=== PATIENT | female | born 1955 ===

== ENCOUNTER 2024-12-05 16:53 | Emergency (ER) | payer OTHER ==
[~2024-12-05] VITALS: Ht 160 cm; Wt 55.8 kg
[2024-12-05] MEDS ORDERED: PREMARIN30 GM VG (17:49)
[2024-12-05] MEDS ORDERED: CEFTRIAXONE SODIUM 2,000 MG VIAL IV ONE (19:45)
== END 2024-12-05 21:34 | disposition home or self-care (01) ==
LOC: ER 16:53
DX: S80.872A Other superficial bite, left lower leg, initial encounter (principal); L03.116 Cellulitis of left lower limb; W55.01XA Bitten by cat, initial encounter; Y93.89 Activity, other specified; Y92.89 Other specified places as the place of occurrence of the external cause

== ENCOUNTER 2024-12-07 11:42 | Inpatient (IN) | payer OTHER ==
[~2024-12-07] VITALS: Ht 160 cm; Wt 55.8 kg
[~2024-12-07 11:42] MED LIST: PREMARIN30 GM VG
[2024-12-07] MEDS ORDERED: PEPCID AC20 MG PO (11:58)
--- NOTE | 2024-12-07 11:59 | NUR ---
SE RECIBE PACIENTE ALERTA Y ORIENTADA X3 LA CUAL REFIERE VENIR A CAUSA DE QUE EL LUNES PASADO LA MORDIO UN LILIAN Y EN EL MONICA DE HO[place] SE OBSERVA AREA AFECTADA ENROJECIDA E INFLAMADA. LA MISMA NOTIFICO QUE SE ATENDIO EL HEMALATHA PASADO Y LE DIERON ANTIBIOTICOS.
[2024-12-07] MEDS ORDERED: CEFTRIAXONE SODIUM 2,000 MG VIAL IV ONE (16:15)
[2024-12-07] MEDS ORDERED: CEFTRIAXONE SODIUM 2,000 MG VIAL ONE ×2 (16:34→22:09)
--- NOTE | 2024-12-07 17:29 | NUR ---
PACIENTE ALERTA Y ORIENTADA X3. SE EDUCA A PACIENTE SOBRE ADMINISTRACION DE MEDICAMENTOS Y CANALIZACION, REFIERE ENTENDER. SE EJECUTAN ORDENES BAJO MEDIDAS ASEPTICAS. SE NOTIFICA RX PENDIENTE.
[2024-12-07 17:31] LABS: BASO % 0.4 % (0.1-1.2); EOS # 0.17 (0.04-0.54); EOS % 2.4 % (0.7-7.0); LYMPH # 2.07 (1.18-3.74); LYMPH % 29.3 % (19.3-53.1); MEAN PLATELET VOLUME 9.50 fl (9.4-12.4); MONO # 0.60 (0.24-0.82); MONO % 8.5 % (4.7-12.5); NEUT # 4.18 (1.56-6.13); NEUT % 59.1 % (34.0-71.1); RED CELL DISTRIBUTION WIDTH 14.6 % (11.6-14.4)
[2024-12-07 17:42] LABS: ERYTHROCYTE SEDIMENTATION RATE 9 mm/hr (0-30)
[2024-12-07 17:56] LABS: BUN CREA RATIO 26.0 (7.0-25.0); CREATININE SERUM 0.62 mg/dL (0.55-1.02); GFR 94.89; GLUCOSE FASTING 101.0 mg/dL (65-100); OSMOLALITY SERUM 288.0 MOSM/KG (275-295)
[2024-12-07] MEDS ORDERED: CEFTRIAXONE SODIUM 2,000 MG in 0.9 % SODIUM CHLORIDE 100 ML IV SCH (21:11)
[2024-12-07] MEDS ORDERED: FAMOTIDINE/PF 20 MG in 0.9 % SODIUM CHLORIDE 8 ML IV PUSH SCH (21:12)
[2024-12-07] MEDS ORDERED: 0.9 % SODIUM CHLORIDE 1,000 ML IV SCH (21:15)
[2024-12-07] MEDS ORDERED: ACETAMINOPHEN 325 MG TABLET PO PRN (21:15)
[2024-12-07] MEDS ORDERED: KETOROLAC TROMETHAMINE 15 MG VIAL IV PRN (21:15)
[2024-12-07] MEDS ORDERED: VANCOMYCIN HCL 500 MG VIAL IV SCH (22:16)
[2024-12-07] MEDS ORDERED: VANCOMYCIN HCL 1,000 MG VIAL ONE (22:31)
[2024-12-07 23:23] VITALS: BP 138/78; O2SAT 98
[2024-12-07 23:29] LABS: INR 1.01
[2024-12-08] MEDS ORDERED: KETOROLAC TROMETHAMINE 30 MG VIAL IV PRN (06:45)
== END 2024-12-08 11:16 | disposition left against medical advice (07) | DRG 605 ==
LOC: ER 11:42 → MEDI 21:33 → SEC-K 12-08 01:26
PROVIDERS: General Practice; Preventive Medicine Public Health & General Preventive Medicine; ADMIT Student in an Organized Health Care Education/Training Program; ATTEND Student in an Organized Health Care Education/Training Program
DX: S81.852A Open bite, left lower leg, initial encounter (principal); L03.116 Cellulitis of left lower limb; W55.01XA Bitten by cat, initial encounter; Y93.9 Activity, unspecified; Y92.9 Unspecified place or not applicable; Y99.9 Unspecified external cause status; Z53.29 Procedure and treatment not carried out because of patient's decision for other reasons